=== PATIENT | male | born 1980 | race Caucasian/White ===

== ENCOUNTER 2016-12-26 00:09 | Emergency (ER) | payer OTHER ==
[~2016-12-26] VITALS: Ht 185.4 cm; Wt 108.9 kg
[2016-12-26] MEDS ORDERED: HYDROcodone-ACET 10/325MG TAB PO ONE (02:00)
[2016-12-26 03:00] VITALS: BP 130/80
== END 2016-12-26 03:01 | disposition home or self-care (01) ==
LOC: ER 00:16
DX: S63.602A Unspecified sprain of left thumb, initial encounter (principal); S00.83XA Contusion of other part of head, initial encounter; J32.9 Chronic sinusitis, unspecified; S09.90XA Unspecified injury of head, initial encounter; Y08.89XA Assault by other specified means, initial encounter; Y93.89 Activity, other specified; Y99.8 Other external cause status; Y92.89 Other specified places as the place of occurrence of the external cause
CPT/HCPCS: 70450; 70486; 73140